=== PATIENT | male | born 1950 | race Caucasian/White ===

== ENCOUNTER 2023-05-14 10:30 | Emergency (ER) | payer MEDICARE, MEDICAID ==
[~2023-05-14] VITALS: Ht 175.3 cm; Wt 102.6 kg
[2023-05-14 11:11] VITALS: TEMP 98.1
[2023-05-14] MEDS ORDERED: AZIT250T83 PO (12:17)
[2023-05-14 12:36] VITALS: BP 125/65; PULSE 83; RESP 24; O2SAT 90
== END 2023-05-14 12:42 | disposition home or self-care (01) ==
LOC: ER 10:31
DX: J06.9 Acute upper respiratory infection, unspecified (principal); R06.02 Shortness of breath
CPT/HCPCS: 71045; 99283